=== PATIENT | male | born 1990 | race Caucasian/White ===

== ENCOUNTER 2016-12-11 23:33 | Emergency (ER) | payer OTHER ==
[~2016-12-11] VITALS: Ht 188 cm; Wt 140.0 kg
[~2016-12-11 23:33] MED LIST: IBUP-1542 PO
[2016-12-11 23:35] VITALS: Ht 188 cm; Wt 140.0 kg
[2016-12-12] MEDS ORDERED: LORAZEPAM 2 MG INJ IM STA (00:23)
[2016-12-12] MEDS ORDERED: OLANZAPINE 10 MG VIAL IM ONE (00:30)
[2016-12-12] MEDS ORDERED: MULTI PO (01:19)
[2016-12-12] MEDS ORDERED: POLY15DR11 BOTH EYES (01:19)
[2016-12-12] MEDS ORDERED: QUET100T PO (01:19)
[2016-12-12] MEDS ORDERED: ASPI-535 PO (01:25)
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
[2016-12-12] MEDS ORDERED: QUET50TA16 PO (04:12)
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
[2016-12-12 05:49] VITALS: BP 127/76; PULSE 110; RESP 17; TEMP 98
== END 2016-12-12 05:50 | disposition home or self-care (01) ==
LOC: E/R 23:33
DX: F20.0 Paranoid schizophrenia (principal); Z79.82 Long term (current) use of aspirin
CPT/HCPCS: 80053; 80306; 80307; 85025; 96372; J2060; Z7502; Z7610

== ENCOUNTER 2018-09-08 17:36 | Emergency (ER) | payer MEDICAID, OTHER ==
[~2018-09-08] VITALS: Ht 175.3 cm; Wt 130.0 kg
[~2018-09-08 17:36] MED LIST changes: +ASPI-535 PO; +CEPH-443 PO; +MULTI PO; +POLY15DR11 BOTH EYES; +QUET100T PO; +QUET50TA PO; +SULF1TAB31 PO
[2018-09-08 17:42] VITALS: BP 176/86; PULSE 111; RESP 18; Ht 175.3 cm; Wt 130.0 kg
--- NOTE | 2018-09-08 18:17 | ERD ---
ER Documentation Chief Complaint Chief Complaint possible abscess on left elbow x 7 days HPI Patient is a 27-year-old male who presents the ER for concerns of a insect bite wound on left elbow x7 days. Patient states initially he had a small lesion however after scratching it the lesion has increased. He states he is noted some yellow discharge from the affected lesion. Patient has no fevers or chills. Patient is able to bend his left arm without any difficulty. Patient denies any headache, nausea, vomiting, vomiting or diarrhea. ROS All systems reviewed and are negative except as per history of present illness. Medications Home Meds Active Scripts Ibuprofen* (Motrin*) 600 Mg Tab, 600 MG PO Q6, #30 TAB Prov:KRYSTAL BALBUENA PA-C 09/08/18 Sulfamethoxazole/Trimethoprim* (Bactrim Ds* Tablet) 1 Each Tablet, 1 TAB PO BID, #14 TAB Prov:KRYSTLA BALBUENA PA-C 09/08/18 Cephalexin* (Keflex*) 500 Mg Capsule, 500 MG PO TID for 7 Days, CAP Prov:KRYSTAL BALBUENA PA-C 09/08/18 Quetiapine Fumarate* (Seroquel*) 50 Mg Tablet, 50 MG PO BID for 14 Days, TAB Prov:JAMES LAND DO 12/12/16 Ibuprofen* (Motrin*) 600 Mg Tab, 600 MG PO Q6H PRN for PAIN AND OR ELEVATED TEMP, #30 Prov:BLACK VUONG MULTIPLE SCLEROSIS NURSE 09/19/14 Reported Medications Aspirin Ec (Aspir 81) 81 Mg Tablet.dr, 81 MG PO DAILY, #30 TAB 12/12/16 Polyvinyl Alcohol* (Akwa Tears*) 1.4% - 15 Ml Drops, 2 DROP BOTH EYES QID, #1 BOTTLE 12/12/16 Multivitamins* (Theragran*) 1 Tab Tab, 1 TAB PO DAILY, TAB 12/12/16 Quetiapine Fumarate* (Seroquel*) 100 Mg Tablet, 100 MG PO HS, #30 TAB 12/12/16 Allergies Allergies: Coded Allergies: No Known Drug Allergy (Unverified Allergy, Unknown, 12/12/16) PMhx/Soc History of Surgery: Yes (APPENDECTOMY) Anesthesia Reaction: No Hx Neurological Disorder: No Hx Respiratory Disorders: No Hx Cardiac Disorders: No Hx Psychiatric Problems: No Hx Miscellaneous Medical Probl: No Hx Alcohol Use: Yes Hx Substance Use: Yes Hx Tobacco Use: No FmHx Family History: No diabetes Physical Exam Vitals Vital Signs Date Temp Pulse Resp B/P (MAP) Pulse Ox O2 O2 Flow FiO2 Time Delivery Rate 09/08/18 99.7 111 18 176/86 97 17:42 (116) Physical Exam GENERAL: Well-developed, well-nourished male. Appears in no acute distress. HEAD: Normocephalic, atraumatic. EYES: Pupils are equally reactive bilaterally. EOMs grossly intact. No conjunctival erythema. ENT: Moist mucous membranes. No uvula deviation. No kissing tonsils. NECK: Supple. No meningismus. Normal range of motion of the neck. LUNG: Clear to auscultation bilaterally. No rhonchi, wheezing, rales or coarse breath sounds. HEART: tachycardic no murmurs, rubs or gallops. EXTREMITIES: Equal pulses bilaterally. No peripheral clubbing, cyanosis or edema. No unilateral leg swelling. L ELBOW: Patient able to bend left elbow without any difficulty. Normal pulses. NEUROLOGIC: Alert and oriented. Moving all four extremities without any difficulty. Normal speech. Steady gait. SKIN: 2 cm round erythematous circular lesion noted on the patient's elbow. Upon palpation, mild yellow drainage noted. No streaking. No warmth. Procedures/MDM MEDICAL DECISION MAKING: This is a 27-year male presents ER for concerns of an infected insect bite to his left arm x7 days. Denies fevers or chills.. Vital signs were reviewed. Patient was afebrile. Patient is not diabetic. Physical exam findings are concerning for localized cellulitis secondary to insect bite. Patient was advised to apply warm courses to the affected area. Patient will be given antibiotics and advised to return in 2 days for recheck. Low suspicion for septic joint as patient is able to bend elbow without any difficulty. Low suspicion for necrotizing fasciitis, sepsis, gangrene, Escudero-Yovani syndrome, toxic epidural necrolysis. PRESCRIPTIONS: Keflex, Bactrim, ibuprofen DISCHARGE: At this time, patient is stable for discharge and outpatient management. I have advised the patient to avoid any new products, creams or possible allergens. I have advised the patient to avoid scratching the lesions. I have instructed the patient to follow-up with his/her primary care physician in 1-2 days. If symptoms persist, patient may need to see a mechanical engineering director for further examinations and testing. I have instructed the patient to promptly return to the ER at any time for any new or worsening symptoms including increased pain, fever, redness, swelling, warmth, difficulty breathing or vomiting. The patient and/or family expressed understanding of and agreement with this plan. All questions were answered. Home care instructions were provided. Patients blood pressure was elevated (>120/80) but appears stable without evidence of hypertensive emergency, hypertensive urgency or end-organ failure. I had discussion with the patient about the risks of hypertension. I have advised the patient to follow up with his/her primary care physician for outpatient monitoring and treatment for hypertension in 2-3 days. I have instructed the patient to return to the ER for any new or worsening symptoms including chest pain, shortness of breath, headache, blurred vision, confusion, nausea, vomiting or LOC. Disclaimer: Inadvertent spelling and grammatical errors are likely due to EHR/di ctation software use and do not reflect on the overall quality of patient care. Also, please note that the electronic time recorded on this note does not necessarily reflect the actual time of the patient encounter. Departure Diagnosis: Primary Impression: Infected insect bite Encounter type: initial encounter Qualified Codes: W57.XXXA - Bitten or stung by nonvenomous insect and other nonvenomous arthropods, initial encounter Additional Impression: Elevated blood pressure reading Condition: Fair Patient Instructions: Insect Bites and Stings Additional Instructions: Recheck advised in 2 days. Apply warm compresses to affected area. Call your primary care doctor TOMORROW for an appointment during the next 1-2 days.See the doctor sooner or return here if your condition worsens before your appointment time. KRYSATL BALBUENA PA-C Sep 08, 2018 18:17
== END 2018-09-08 18:09 | disposition home or self-care (01) ==
LOC: E/R 17:36
DX: S50.362A Insect bite (nonvenomous) of left elbow, initial encounter (principal); R03.0 Elevated blood-pressure reading, without diagnosis of hypertension; W57.XXXA Bitten or stung by nonvenomous insect and other nonvenomous arthropods, initial encounter; Y92.9 Unspecified place or not applicable; Z79.82 Long term (current) use of aspirin; Z87.891 Personal history of nicotine dependence
CPT/HCPCS: 99283